=== PATIENT | male | born 1965 | race African-American/Black ===

== ENCOUNTER 2017-12-23 09:21 | Emergency (ER) | payer OTHER ==
[2017-12-23 11:25] LABS: ADD MAN DIFF? NO
[2017-12-23 11:27] LABS: WHITE BLOOD COUNT 9.2 10^3/ul (4.8-10.8)
[2017-12-23 11:27] LABS: BASOPHIL # 0.1 10^3/ul (0.0-0.1); BASOPHILS % 0.7 % (0.0-2.0); EOSINOPHILS % 0.2 % (0.0-7.0); HEMATOCRIT 45.8 % (42.0-52.0); HEMOGLOBIN 15.7 g/dl (14.0-18.0); LYMPHOCYTES # 1.2 10^3/ul (0.8-2.9); LYMPHOCYTES % 13.2 % (15.0-51.0); MEAN CORPUSCULAR HEMOGLOBIN 28.5 pg (29.0-33.0); MEAN CORPUSCULAR HGB CONC 34.3 g/dl (32.0-37.0); MEAN CORPUSCULAR VOLUME 83.3 fl (82.0-101.0); MONOCYTE # 0.6 10^3/ul (0.3-0.9); MONOCYTES % 6.8 % (0.0-11.0); NEUTROPHIL # 7.2 10^3/ul (1.6-7.5); NEUTROPHILS % 78.8 % (39.0-77.0); PLATELET COUNT 249 10^3/UL (140-415); RED CELL DISTRIBUTION WIDTH 13.4 % (11.5-14.5)
[2017-12-23] MEDS: LORAZEPAM 2 MG INJ IV (11:34)
[2017-12-23 11:46] LABS: ALANINE AMINOTRANSFERASE 33 IU/L (13-69); ALBUMIN 4.2 g/dl (3.3-4.9); ALBUMIN/GLOBULIN RATIO 1.31; ALKALINE PHOSPHATASE 80 IU/L (42-121); ANION GAP 19 (8-16); ASPARTATE AMINO TRANSFERASE 33 IU/L (15-46); BILIRUBIN,INDIRECT 0.5 mg/dl (0-1.1); BILIRUBIN,TOTAL 0.5 mg/dl (0.2-1.3); BLOOD UREA NITROGEN 9 mg/dl (7-20); CALCIUM 9.8 mg/dl (8.4-10.2); CARBON DIOXIDE 25 mmol/L (21-31); CHLORIDE 103 mmol/L (97-110); CREATININE 0.96 mg/dl (0.61-1.24); GLUCOSE 124 mg/dl (70-220); POTASSIUM 3.7 mmol/L (3.5-5.1); SODIUM 143 mmol/L (135-144); TOTAL PROTEIN 7.4 g/dl (6.1-8.1)
[2017-12-23 11:49] LABS: ETHANOL < 10.0 mg/dl
[2017-12-23 12:48] LABS: TROPONIN-I 0.044 ng/ml (0.00-0.12)
[2017-12-23 13:28] LABS: BARBITURATES NEGATIVE (NEGATIVE); BENZODIAZEPINES NEGATIVE (NEGATIVE); CANNABINOIDS POSITIVE (NEGATIVE); OPIATES NEGATIVE (NEGATIVE)
[2017-12-23 13:59] LABS: AMPHETAMINE/METHAMPHETAMINE POSITIVE (NEGATIVE); COCAINE NEGATIVE (NEGATIVE)
== END 2017-12-23 15:55 | disposition home or self-care (01) ==
LOC: E/R 09:21
DX: F41.9 Anxiety disorder, unspecified (principal); F15.10 Other stimulant abuse, uncomplicated; R00.0 Tachycardia, unspecified; I10 Essential (primary) hypertension
CPT/HCPCS: 36415; 71045; 80053; 80306; 80307; 84484; 85025; 93005; 96374; 99285-25

== ENCOUNTER 2018-12-21 16:45 | Emergency (ER) | payer OTHER ==
[2018-12-21] MEDS: KETOROLAC 30 MG INJ IM (16:57)
== END 2018-12-21 18:11 | disposition home or self-care (01) ==
LOC: FTE 16:45
DX: R07.89 Other chest pain (principal); I10 Essential (primary) hypertension
CPT/HCPCS: 71045; 93005; 96372; 99284-25

== ENCOUNTER 2019-02-19 09:03 | Emergency (ER) | payer OTHER ==
[2019-02-19] MEDS: ALBUTEROL 0.083% (NEB) 2.5 MG/3 ML AMP NEB (09:46)
[2019-02-19] MEDS: IPRATROPIUM (NEB) 0.5 MG/2.5 ML AMP NEB (09:46)
[2019-02-19] MEDS: METHYLPREDNISOLONE 125 MG INJ IV (09:51)
[2019-02-19] MEDS: KETOROLAC 30 MG INJ IV (09:51)
[2019-02-19] MEDS: SOD CHLORIDE 0.9% 1,000 ML IV (09:51)
[2019-02-19 09:59] LABS: ADD MAN DIFF? NO
[2019-02-19 10:06] LABS: BASOPHIL # 0.1 10^3/ul (0.0-0.1); BASOPHILS % 0.9 % (0.0-2.0); EOSINOPHILS # 0.7 10^3/ul (0.0-0.5); EOSINOPHILS % 7.5 % (0.0-7.0); HEMATOCRIT 42.9 % (42.0-52.0); HEMOGLOBIN 13.9 g/dl (14.0-18.0); LYMPHOCYTES % 11.6 % (15.0-51.0); MEAN CORPUSCULAR HGB CONC 32.4 g/dl (32.0-37.0); MEAN CORPUSCULAR VOLUME 83.3 fl (82.0-101.0); MEAN PLATELET VOLUME 9.4 fl (7.4-10.4); MONOCYTE # 0.7 10^3/ul (0.3-0.9); MONOCYTES % 8.4 % (0.0-11.0); NEUTROPHIL # 6.2 10^3/ul (1.6-7.5); NEUTROPHILS % 71.3 % (39.0-77.0); PLATELET COUNT 253 10^3/UL (140-415); RED BLOOD COUNT 5.15 10^6/ul (4.70-6.10); RED CELL DISTRIBUTION WIDTH 13.2 % (11.5-14.5)
[2019-02-19 10:06] LABS: WHITE BLOOD COUNT 8.7 10^3/ul (4.8-10.8)
[2019-02-19 10:19] LABS: ALANINE AMINOTRANSFERASE 26 IU/L (13-69); ALBUMIN 3.5 g/dl (3.3-4.9); ALBUMIN/GLOBULIN RATIO 0.92; ALKALINE PHOSPHATASE 96 IU/L (42-121); ANION GAP 5 (5-13); ASPARTATE AMINO TRANSFERASE 25 IU/L (15-46); BILIRUBIN,INDIRECT 0.4 mg/dl (0-1.1); BILIRUBIN,TOTAL 0.4 mg/dl (0.2-1.3); BLOOD UREA NITROGEN 7 mg/dl (7-20); CALCIUM 8.7 mg/dl (8.4-10.2); CARBON DIOXIDE 31 mmol/L (21-31); CHLORIDE 105 mmol/L (97-110); CREATININE 0.96 mg/dl (0.61-1.24); Estimated GFR > 60 mL/min (>60); GLUCOSE 102 mg/dl (70-220); SODIUM 141 mmol/L (135-144); TOTAL PROTEIN 7.3 g/dl (6.1-8.1)
[2019-02-19] MEDS ORDERED: CLINDAMYCIN 300 MG INJ IM (11:00)
[2019-02-19] MEDS: CLINDAMYCIN 300 MG/D5W (PMX) 50 ML IVPB (11:52)
== END 2019-02-19 16:14 | disposition home or self-care (01) ==
LOC: FTE 09:03
DX: J98.11 Atelectasis (principal); J18.9 Pneumonia, unspecified organism; I10 Essential (primary) hypertension
CPT/HCPCS: 36415; 71046; 80053; 85025; 87400; 94664; 96361; 96365; 96366; 96375; 99284-25